=== PATIENT | female | born 1965 | race Hispanic/Latino ===

== ENCOUNTER 2018-03-09 18:16 | Emergency (ER) | payer MEDICAID ==
[2018-03-09 18:38] VITALS: RESP 18
--- NOTE | 2018-03-09 19:09 | ED PDOC ---
Upper Extremity Pain/Injury Time Seen by Provider: 03/09/18 18:38 Chief Complaint (Nursing): Upper Extremity Problem/Injury Chief Complaint (Provider): Left Hand / Wrist Pain History Per: Patient History/Exam Limitations: no limitations Onset/Duration Of Symptoms: Days (x1 week) Current Symptoms Are (Timing): Still Present Additional Complaint(s): 52 year old female presents to the ED for evaluation of left hand and wrist pain. Patient states that one week ago, she accidentally struck her left hand on a metal surface and has since had progressively worsening pain to the area. Otherwise, she denies any numbness or tingling. PMD: Jaky Ochoa Past Medical History Reviewed: Historical Data, Nursing Documentation, Vital Signs Vital Signs: Last Vital Signs Temp 98.9 F 03/09/18 18:34 Pulse 88 03/09/18 18:34 Resp 18 03/09/18 18:34 BP 120/69 03/09/18 18:34 Pulse Ox 99 03/09/18 18:34 - Medical History PMH: No Chronic Diseases - Surgical History Surgical History: No Surg Hx - Family History Family History: States: Unknown Family Hx - Social History Current smoker - smoking cessation education provided: Yes Alcohol: None Drugs: Denies - Allergies Allergies/Adverse Reactions: Allergies Allergy/AdvReac Type Severity Reaction Status Date / Time Penicillins Allergy RASH Verified 03/09/18 18:33 Sulfa (Sulfonamide Allergy RASH Verified 03/09/18 18:33 Antibiotics) Review of Systems ROS Statement: Except As Marked, All Systems Reviewed And Found Negative Musculoskeletal: Positive for: Hand Pain (left hand / wrist) Neurological: Negative for: Numbness (or tingling) Physical Exam - Reviewed Nursing Documentation Reviewed: Yes Vital Signs Reviewed: Yes - Physical Exam Appears: Positive for: No Acute Distress Skin: Positive for: Normal Color, Warm, Dry Pulses-Radial (L): 2+ Pulses-Radial (R): 2+ Extremity: Positive for: Normal ROM (actively of left wrist and hand), Tenderness (minimal to left radial side of left hand and wrist), Capillary Refill (less than 2 seconds). Negative for: Deformity, Swelling - ECG O2 Sat by Pulse Oximetry: 99 (RA) Pulse Ox Interpretation: Normal Medical Decision Making Medical Decision Making: Time: 18:41 Initial Impression: hand / wrist pain, r/o fracture Initial Plan: --XR left hand --XR left wrist 19:16 XR hand: no fracture or dislocation noted, as read by MADDY. XR wrist: no fracture or dislocation noted, as read by MADDY. Patient placed in a velcro wrist splint by MADDY in the ED and will be given an orthopedic follow up. All questions answered at this time. Scribe Attestation: Documented by María Dyer acting as a scribe for Eugenio Arevalo PA-C. Provider Scribe Attestation: All medical record entries made by the Scribe were at my direction and personally dictated by me. I have reviewed the chart and agree that the record accurately reflects my personal performance of the history, physical exam, medical decision making, and the department course for this patient. I have also personally directed, reviewed, and agree with the discharge instructions and disposition. Disposition - Clinical Impression Clinical Impression: Wrist contusion - Patient ED Disposition Is Patient to be Admitted: No - Disposition Referrals: Pieter Rodrigues MD [Staff Provider] - Oniel Galeana MD [Medical Doctor] - Disposition: Routine/Home Disposition Time: 19:00 Condition: STABLE Additional Instructions: ERNESTO LANDA, thank you for letting us take care of you today. Your provider was Ludy Esteban MD and you were treated for LT WRIST PAIN. The emergency medical care you received today was directed at your acute symptoms. If you were prescribed any medication, please fill it and take as directed. It may take several days for your symptoms to resolve. Return to the Emergency Department if your symptoms worsen, do not improve, or if you have any other problems. Please contact your doctor or call one of the physicians/clinics you have been referred to that are listed on the Patient Visit Information form that is included in your discharge packet. Bring any paperwork you were given at discharge with you along with any medications you are taking to your follow up visit. Our treatment cannot replace ongoing medical care by a primary care provider outside of the emergency department. Thank you for allowing the [facility] team to be part of your care today. If you had an X-Ray or CT scan: A Radiologist will review the ED reading if any change in treatment is needed we will contact you. If you had a blood, urine, or wound culture: It will take several days for the results, if any change in treatment is needed we will contact you. If you had an STI test: It will take 48 hours for the results. Please call after 1 week if you have not heard back. Instructions: Contusion (DC) Forms: Hantele ([place]) Print Language: SWAZI
[2018-03-09 19:20] VITALS: BP 122/70; PULSE 82; TEMP 98
--- NOTE | 2018-03-10 09:09 | RAD ---
PROCEDURE: Left Hand Radiographs. HISTORY: trauma COMPARISON: None. FINDINGS: BONES: No acute fracture or destructive bony lesion identified. JOINTS: Normal. No osteoarthritic changes. SOFT TISSUES: Normal. OTHER FINDINGS: None. IMPRESSION: Unremarkable left hand radiographs.
--- NOTE | 2018-03-10 09:10 | RAD ---
Date of service: 03/09/2018 PROCEDURE: Left Wrist Radiographs. HISTORY: trauma COMPARISON: None. FINDINGS: BONES: No acute fracture or destructive bony lesion identified. JOINTS: Normal. No dislocation. SOFT TISSUES: Normal. OTHER FINDINGS: None. IMPRESSION: Unremarkable left wrist radiographs.
[2018-03-10 12:47] VITALS: O2SAT 99
== END 2018-03-09 19:20 | disposition home or self-care (01) ==
LOC: H.ER 18:16
DX: S60.212A Contusion of left wrist, initial encounter (principal); W22.8XXA Striking against or struck by other objects, initial encounter; Y92.89 Other specified places as the place of occurrence of the external cause; Z88.0 Allergy status to penicillin